=== PATIENT | female | born 1965 | race Caucasian/White ===

== ENCOUNTER 2022-06-23 09:45 | Outpatient (RCR) | payer OTHER, SELFPAY | END 2022-08-07 14:13 | disposition home or self-care (01) | PROVIDERS: PCP Family Medicine; Visit Provider Family Medicine | DX: S93.491D Sprain of other ligament of right ankle, subsequent encounter (principal); Z51.89 Encounter for other specified aftercare | CPT/HCPCS: 97110; 97140; 97162 ==

== ENCOUNTER 2022-09-05 11:20 | Emergency (ER) | payer BC, SELFPAY ==
[2022-09-05 11:41] VITALS: BP 151/86; PULSE 87; TEMP 37.1; O2SAT 96; BMI 38.1
--- NOTE | 2022-09-05 13:51 | ED_ITS ---
HPI - General Adult General Date Seen: 09/05/22 Chief complaint: Unspecified Complaint, Adult Stated complaint: Covid + Time Seen by Provider: 09/05/22 11:22 Source: patient Mode of arrival: ambulatory Limitations: no limitations History of Present Illness HPI narrative: Patient is a 57-year-old female who is seen for evaluation of a positive COVID test. She had this at home, she says she had a little bit of discharge her her eyes is a little bit of a sore throat, no chest pain no shortness of breath. Denies any significant shortness of breath associated with this no nausea vomiting abdominal pain or rashes. 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 No other places are open so she came to the hospital to be seen. No past history of any kidney issues, she is not on no medications that affect her kidney, her medications are reviewed and listed. Related Data Home Medications Medication Instructions Recorded Confirmed aripiprazole 2 mg tablet mg 09/05/22 diltiazem HCl 360 mg mg PO 09/05/22 capsule,extended release 24 hr duloxetine 30 mg capsule,delayed mg PO 09/05/22 release duloxetine 60 mg capsule,delayed mg PO 09/05/22 release levothyroxine 88 mcg tablet mcg 09/05/22 Previous Rx's Medication Instructions Recorded nirmatrelvir 300 mg (150 mg See Rx Instructions PO .COMPLEX 09/05/22 x2)-ritonavir 100 mg tablet,dose #30 ea pack(EUA) (Paxlovid) Allergies Allergy/AdvReac Type Severity Reaction Status Date / Time cephalexin [From Keflex] Allergy Unknown Verified 09/05/22 11:45 Review of Systems Status of ROS: Reports: 10 or more systems reviewed and unremarkable except as noted in History and below Exam Narrative: Exam Narrative: Patient is speaking normally, no problem with slurring words, oriented x3. Head eyes ears nose and throat exam show equal pupils, no scleral icterus, extraocular muscles are normal, no facial droop, speech is normal, trachea normal and midline. Thyroid normal midline palpable not enlarged. Chest shows symmetrical rise bilaterally, normal auscultation with no wheezes, no increased work of breathing, no overt bruising or lesions seen, no tenderness is noted on auscultation. Heart sounds normal with no S3-S4 no murmurs clicks or gallops. Abdomen shows no obvious masses or hepatosplenomegaly, no organomegaly, bowel sounds are normal in all quadrants. No tenderness is noted also in all quadrants. Upper and lower extremities show normal power, normal range of motion, pulses are normal, sensations normal, fine motor movements are normal, pelvis is stable to rocking. Cervical spine shows normal range of motion, and palpably not tender. Thoracic spine shows normal range of motion, and palpably not tender, lumbar spine shows no tenderness to palpation percussion and is otherwise normal range of motion. Skin shows no rashes, petechiae or eccymosis. Const: Vital Signs, click to edit/add: Vital Signs - 24 hr 09/05/22 11:41 Temperature 98.8 F Pulse Rate [Pulse Oximeter] 87 Blood Pressure [Ri ght Upper Arm] 151/86 H Pulse Oximetry 96 Oxygen Delivery Me thod Room Air Course Course Hospital Course: I reviewed within the liver pool interaction check her that she is a candidate for Paxil of it, she has no pre-existing kidney issues, and given new current guidelines she does not need creatinine. I went over with her the risks benefits and side effects of treatment, and prescription is granted for the medication. Vital Signs Vital signs: Initial Vital Signs Temperature 98.8 F 09/05/22 11:41 Temperature Source Oral 09/05/22 11:41 Pulse Rate 87 09/05/22 11:41 Blood Pressure 151/86 H 09/05/22 11:41 Blood Pressure Mean 107 09/05/22 11:41 Blood Pressure Position Sitting 09/05/22 11:41 Pulse Oximetry 96 09/05/22 11:41 Oxygen Delivery Method 09/05/22 11:41 Vital Signs Temperature 98.8 F 09/05/22 11:41 Pulse Rate 87 09/05/22 11:41 Blood Pressure 151/86 H 09/05/22 11:41 Pulse Oximetry 96 09/05/22 11:41 Oxygen Delivery Method 09/05/22 11:41 Temperature 98.8 F 09/05/22 11:41 Pulse Rate 87 09/05/22 11:41 Blood Pressure 151/86 H 09/05/22 11:41 Pulse Oximetry 96 09/05/22 11:41 Oxygen Delivery Method 09/05/22 11:41 Medical Decision Making MDM Narrative Medical decision making narrative: Differential diagnosis include a viral upper respiratory illness, histoplasmosis, tuberculosis, pneumonia, COPD exacerbation, emphysema, strep throat illness, bronchitis, asthma, reactive airway disease, chronic cough, medication side effects, allergic rhinitis with postnasal drip, foreign body aspiration, aspiration pneumonia, bronchiolitis, and gastroesophageal reflux disease as well as multiple other considerations. Discharge Plan Discharge Clinical Impression: COVID-19 Patient Disposition: Home, Self-Care Condition: Stable Instructions: How To Wash Your Hands (ED), Droplet Precautions (ED), COVID-19 (Coronavirus Disease 2019) (ED), COVID-19: Slow the Coronavirus Spread (ED) Additional Instructions: Home rest you are candidate for Paxlovid based on her current medications, and history. Prescription is given for 5 days worth, please take this, please avoid going back to work for the next 7 days. Return here if increasing chest pain shortness of breath or other symptoms, it would not be a bad idea to by an ox ygen saturation monitor, which are 30 dollars usually at [facility] or [facility] Prescriptions: New Paxlovid (EUA) 300 mg (150 mg x 2)-100 mg tablets,dose pack See Rx Instructions .ROUTE .COMPLEX Qty: 30 0RF Rx Instructions: take TWO 150 mg tablets of nirmatrelvir with ONE 100 mg tablet of ritonavir twice daily for 5 days No Action diltiazem HCl 360 mg capsule,extended release 24hr PO levothyroxine 88 mcg tablet Label Comments: TAKE 1 TABLET BY MOUTH BEFORE BREAKFAST. 3 DAYS PER WEEK duloxetine 30 mg capsule,delayed release(DR/EC) PO Label Comments: TAKE 1 CAPSULE BY MOUTH ONCE DAILY duloxetine 60 mg capsule,delayed release(DR/EC) PO aripiprazole 2 mg tablet Follow Up/Referrals: Yaima Mireles MD [Primary Care Provider] - Stand Alone Forms: [employer] Info Instructions
[2022-09-05 13:53] VITALS: BP 148/91; PULSE 77; RESP 20; O2SAT 96
== END 2022-09-05 14:03 | disposition home or self-care (01) ==
PROVIDERS: Emergency Provider Family Medicine; PCP Family Medicine
DX: U07.1 COVID-19 (principal)
CPT/HCPCS: 99283

== ENCOUNTER 2025-02-17 14:25 | Outpatient (CLI) | payer BC, SELFPAY | END 2025-02-17 14:26 | disposition home or self-care (01) | LOC: NFLDREF 02-21 02:44 | PROVIDERS: PCP Family Medicine; Referring Provider Family Medicine | DX: N30.01 Acute cystitis with hematuria (principal); B96.89 Other specified bacterial agents as the cause of diseases classified elsewhere | CPT/HCPCS: 87086 ==